=== PATIENT | female | born 1945 | race Hispanic/Latino ===

== ENCOUNTER 2018-08-26 11:52 | Outpatient (CLI) | payer MEDICARE ==
--- NOTE | 2018-08-26 12:04 | RAD ---
LUMBAR SPINE 3 VIEWS: Date: 08/26/18 HISTORY: Low back pain. FINDINGS: Multilevel degenerative changes are seen. No fracture, subluxation, or bony destruction identified. IMPRESSION: Lumbar spondylosis. POS: OFF
== END 2018-08-26 11:53 | disposition home or self-care (01) ==
LOC: RAD-FRANK 11:52
PROVIDERS: ATTEND Nurse Practitioner Family
DX: M54.5 Low back pain (principal); M47.816 Spondylosis without myelopathy or radiculopathy, lumbar region
CPT/HCPCS: 72100